=== PATIENT | male | born 1980 | race American Indian/Alaskan Native ===

== ENCOUNTER 2019-11-28 10:21 | Emergency (ER) | payer OTHER ==
[2019-11-28 10:32] VITALS: BP 135/81
[2019-11-28] MEDS ORDERED: diphenhydrAMINE 50 MG/ML VIAL IV STA (11:39)
[2019-11-28] MEDS ORDERED: ONDANSETRON 4 MG/2 ML INJ IV STA (11:39)
[2019-11-28] MEDS ORDERED: KETOROLAC 30 MG/1 ML INJ IV STA (11:39)
[2019-11-28] MEDS ORDERED: SODIUM CHLORIDE 0.9% 1000 ML 1,000 ML IV ONE (11:39)
[2019-11-28] MEDS ORDERED: METOCLOPRAMIDE 10 MG/2 ML INJ IV STA (11:39)
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
== END 2019-11-28 14:37 | disposition home or self-care (01) ==
LOC: ED 10:21
DX: G43.909 Migraine, unspecified, not intractable, without status migrainosus (principal); R11.10 Vomiting, unspecified; F17.200 Nicotine dependence, unspecified, uncomplicated; Z79.899 Other long term (current) drug therapy
CPT/HCPCS: 96361; 96374; 96375; 99282; J1200; J1885; J2405; J2765; J7030